=== PATIENT | male | born 1940 | race Caucasian/White ===

== ENCOUNTER → 2021-05-06 09:36 | Outpatient (CLI) | payer MEDICARE, OTHER, SELFPAY ==
[2021-05-06 12:58] LABS: COVID19 -Nasal RAPID Negative (Negative)
== END ==
PROVIDERS: Visit Provider Physician Assistant
DX: Z01.812 Encounter for preprocedural laboratory examination (principal); Z20.822 Contact with and (suspected) exposure to COVID-19
CPT/HCPCS: 87635; C9803

== ENCOUNTER 2021-05-08 12:15 | Day surgery (SDC) | payer MEDICARE, OTHER, SELFPAY ==
--- NOTE | 2021-05-07 19:38 | PM.PREOP ---
Pre-operative Note COVID-19 COVID-19 status: Negative Interval Note History & Physical reviewed/Exam performed by Physician: Yes Changes to H&P: No
--- NOTE | 2021-05-08 08:22 | P.OP_ITS ---
Operative Date/Time/Diagnoses Date of procedure: 05/08/21 Time of procedure: 13:15 Procedure & Clinicians Procedure: Preoperative diagnoses: 1. Left complex surgery with use of capsular dye. 2. Mature or advanced nuclear sclerotic and cortical cataract with poor visibility of the anterior capsule increasing surgical risks of complications. 3. 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 Postoperative diagnoses: 1. Left Complex surgery with use of capsular dye, 2. Placement of a posterior chamber intraocular lens implant. 3. Use of Maluygin ring Surgeon: Kaelyn Gibson MD Complications: none Specimen: None Implant: [id number]+22.5 Blood loss: None Anesthesia: Retrobulbar with monitored standby. Description of procedure: Dictated by: Kaelyn Gibson MD Post operative diagnoses: 1. Left cataract removed with use of capsular dye and Maluygin ring. 2. Placement of a posterior chamber intraocular lens. Procedure: Phacoemulsification with posterior chamber intraocular lens implant Surgeon: Kaelyn Gibson MD Blood loss: None Anesthesia: Retrobulbar with monitored standby Description of procedure: Patient has presented with decreased vision due to cataract which is affecting activities of daily living especially driving. The patient wants surgery to improve vision. They understand the extra risk of surgery during the COVID-19 epidemic and wished to proceed. The patient has tested negative for active COVID-19 virus within 72 hours of the procedure. Due to the possibility of floppy iris syndrome a Maluygin ring and capsular dye our plan to increase safety. This is due to the fact that he takes 2 prostate related directly that will cause increased virus problems during surgery. The patient was taken to the operating room and given IV sedation. A retrobulbar block consisting of 6 cc of 2% xylocaine without epinephrine mixed half and half with 0.5% Marcaine with 1 cc of hyaluronidase added is placed between the medial and lateral 1/3 of the inferior orbital rim. The eye is manually massaged for 30 sec, prepped using Betadine solution, and draped in the usual sterile fashion. Temporal approach was made, a 1 mm side-port incision was performed 90 degrees from the planned corneal wound. Phenylephrine 1.5% mixed with 1% xylocaine 0.2 cc was placed into the anterior chamber. An air bubble was placed and capsular blue dye was placed to improve visibility of the anterior capsule. The dye was irrigated out to reduce bubbles. Endocoat followed by Healon was then placed. A 2.6 mm clear incision with a 2.6 mm blade was placed. Is 7.0 mm Maluygin ring was inspected and open to the anterior chamber. It was then sequentially hooked on all quadrants of the iris to improve visibility. 360 degree capsulorrhexis style capsulotomy was then performed with a cystitome needle on a Healon greatly aided by the capsular dye. Hydrodelineation and hydrodissection were performed. The phacoemulsification unit is introduced, and sculpting used to groove the central lens. It is then removed in chopping mode. Epi nucleus is removed with epinuclear mode and irrigation aspiration was used to remove the peripheral cortex. A small amount of subincisional cortex was left for after the intra- ocular lens insertion. It was then removed. The posterior capsule is polished. The intraocular lens is selected, inspected, power confirmed, and placed in the posterior chamber. The Maluygin ring was then disinserted and removed from the eye. Thewound was stromally hydrated and tested for leaks, there was none and was left sutureless. Intracameral moxifloxacin 0.1 cc was placed into the anterior chamber. Kenalog 0.2 cc was placed in the superior subconjunctival space. A drop of antibiotic and was placed and the eye was patched and shielded. The patient was stable and returned to the recovery room in excellent condition. Dictated by: Kaelyn Gibson MD Copy to: [facility] Same procedure as scheduled: Yes
--- NOTE | 2021-05-08 12:10 | SUR.OPER ---
Supine on eye stretcher, head on extension cradle secured with tape. Arms tucked at sides with blanket. Pillow under knees.
[2021-05-08 12:42] VITALS: BP 193/103; PULSE 73; RESP 16; TEMP 36.3; O2SAT 99; BMI 24.0
[2021-05-08] MEDS: PROPARACAINE 0.5% OPHTH SOL 2 DROPS EYE-OP (12:45)
[2021-05-08] MEDS: CATARACT EYE COMPOUND (10 DROPS/SYRINGE) 3 DROPS EYE-OP (12:50)
[2021-05-08 12:57] VITALS: BP 182/98; PULSE 65; RESP 12
[2021-05-08] MEDS: HYALURONATE SODIUM 30 MG-10 MG/ML SYRINGES 1 BOX INTRAOCULA (13:38)
[2021-05-08] MEDS: PHENYLEPHRINE/LIDOCAINE VIAL (OR) 0.2 ML EYE-OP (13:38)
[2021-05-08] MEDS: MOXIFLOXACIN INJ 4 MG/0.8 ML VIAL 0.5 MG EYE-OP (13:38)
[2021-05-08] MEDS: LIDOCAINE 2% 4 ML, BUPIVACAINE 0.5% (PF) 4 ML, HYALURONIDASE 150 UNIT INJ (13:39)
[2021-05-08] MEDS: TRIAMCINOLONE 50 MG/5 ML VIAL INJ (13:39)
[2021-05-08] MEDS: ERYTHROMYCIN OPHTH 1 GM OINT 1 APPLIC EYE-LEFT (13:40)
[2021-05-08] MEDS: TRYPAN BLUE 0.5 ML SYRINGE INJ (13:40)
[2021-05-08] MEDS: BALANCED SALT IRRIG SOLN NO.2 500 ML, EPINEPHrine 1 MG IRR (13:40)
[2021-05-08 14:19] VITALS: BP 161/98; PULSE 62; RESP 16; TEMP 36.4; O2SAT 95
== END 2021-05-08 14:30 | disposition home or self-care (01) ==
PROVIDERS: Referring Provider Ophthalmology; Visit Provider Ophthalmology
PROC: (CPT 66982; principal; 2021-05-08 13:15)
DX: H25.812 Combined forms of age-related cataract, left eye (principal); H21.81 Floppy iris syndrome; I10 Essential (primary) hypertension
CPT/HCPCS: 66982; J0171; J2704; J3301; J3470

== ENCOUNTER → 2021-05-20 09:55 | Outpatient (CLI) | payer MEDICARE, OTHER, SELFPAY ==
[2021-05-20 13:30] LABS: COVID19 -Nasal RAPID Negative (Negative)
== END ==
PROVIDERS: Referring Provider Ophthalmology; Visit Provider Ophthalmology
DX: Z20.822 Contact with and (suspected) exposure to COVID-19 (principal)
CPT/HCPCS: 87635; C9803

== ENCOUNTER 2021-05-22 07:21 | Day surgery (SDC) | payer MEDICARE, OTHER, SELFPAY ==
--- NOTE | 2021-05-20 19:53 | PM.PREOP ---
Pre-operative Note COVID-19 COVID-19 status: Negative Criteria for continued procedure: Expected advancement of disease process, Possibility delay results in more complex future surgery or treatment, Increased loss of function and Non-surgical alternatives not available or appropriate per current SOC Interval Note History & Physical reviewed/Exam performed by Physician: Yes Changes to H&P: No
[2021-05-22] MEDS: PROPARACAINE 0.5% OPHTH SOL 2 DROPS EYE-OP (07:50)
[2021-05-22] MEDS: CATARACT EYE COMPOUND (10 DROPS/SYRINGE) 3 DROPS EYE-OP (07:55)
--- NOTE | 2021-05-22 07:58 | P.OP_ITS ---
Operative Date/Time/Diagnoses Date of procedure: 05/22/21 Time of procedure: 08:45 Procedure & Clinicians Procedure: Preoperative diagnoses: 1. Right advanced nuclear sclerotic and cortical cataract. 2. 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 3. Need for capsular dye 4. Hypertension with uses sympathomimetics 5. 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 Prostatic hypertrophy 7. Arthritis Postoperative diagnoses: 1. Complex cataract removed by phacoemulsification with placement of posterior chamber intraocular lens. 2. Use of Malyugin ring and capsular dye Procedure: Phacoemulsification with posterior chamber intraocular lens implant and use of Malyguin ring. Surgeon: Kaelyn Gibson MD Complications: None Specimen: None Implant: [id number]+22.5 Blood loss: None Anesthesia: Retrobulbar with monitored standby Description of procedure: Patient presents with a complaint of decreased vision due to cataract which is affecting activities of daily living especially for driving. The patient wants surgery to improve vision. The iris is floppy due to use of prostate like medication or unknown reason. To improve surgical safety a Malyugin ring iris pupillary device is needed. 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 A delay in surgery will increase the complexity as well as the complication likelihood. He has also stopped finasteride and terazosin for 4 days for surgery. This increases hypertension and needs to be reversed as soon as he is stable. He understands the extra risk of surgery during the COVID-19 epidemic and wishes to proceed. He has tested active virus negative within 72 hours of the procedure The patient was taken to the operating room and given IV sedation. A retrobulbar block insert consisting of 6 cc of 2% xylocaine without epinephrine mixed half and half with 0.5% Marcaine with 1 cc of hyaluronidase added is placed between the medial and lateral 1/3 of the inferior orbital rim. The eye is manually massaged for 30 sec, prepped using Betadine solution, and draped in the usual sterile fashion. Temporal approach was made, a 1 mm side-port incision was made 90? from the proposed clear corneal incision position. Phenylephrine 1.5% mixed with 1% xylocaine 0.2 cc was placed into the anterior chamber. An air bubble was placed followed by vision blue dye to improve visibility. Endocoat followed by Healon was then placed. A 2.6 mm clear incision with a 2.6 mm blade was placed. A 7.0 mm Malyugin ring was inspected, placed into the color paste mixer and opened in the anterior chamber. The iris was sequentially hooked in all 4 quadrants. It was then centered to improve iris size and visibility. A 360 degree capsulorrhexis style capsulotomy was then performed with a cystitome needle on a Healon aided by the enlarged pupil and capsular dye Hydrodelineation and hydrodissection were performed. The phacoemulsification unit is introduced, and sculpting used to groove the central lens. It is then removed in chopping mode. Epi nucleus is removed with epinuclear mode and irrigation aspiration was used to remove the peripheral cortex. The posterior capsule is polished. The intraocular lens is selected, inspected, power confirmed, and placed in the posterior chamber. [Viscoelastic was placed into the anterior chamber and the Malyugin ring disinserted from each quadrant of the iris. It was then placed back into its color paste mixer and removed in total from the eye. ] The wound was stromally hydrated and tested for leaks, there was none and it was left sutureless. Moxifloxacin 0.1 cc was placed into the anterior chamber. Kenalog 0.2 cc was placed in the superior subconjunctival space. A drop of antibiotic and was placed and the eye was patched and shielded. The patient was stable and returned to the recovery room in excellent condition. He will resume all his blood pressure medication this morning. Dictated by: Kaelyn Gibson MD Copy to: [facility] Same procedure as scheduled: Yes
[2021-05-22 08:04] VITALS: BP 168/78; PULSE 67; RESP 16; TEMP 36.3; O2SAT 97; BMI 23.7
[2021-05-22] MEDS: HYALURONATE SODIUM 30 MG-10 MG/ML SYRINGES 1 BOX INTRAOCULA (09:09)
[2021-05-22] MEDS: PHENYLEPHRINE/LIDOCAINE VIAL (OR) 0.2 ML EYE-OP (09:09)
[2021-05-22] MEDS: MOXIFLOXACIN INJ 4 MG/0.8 ML VIAL 0.5 MG EYE-OP (09:09)
[2021-05-22] MEDS: BALANCED SALT IRRIG SOLN NO.2 500 ML, EPINEPHrine 1 MG IRR (09:10)
[2021-05-22] MEDS: LIDOCAINE 2% 4 ML, BUPIVACAINE 0.5% (PF) 4 ML, HYALURONIDASE 150 UNIT INJ (09:10)
[2021-05-22] MEDS: TRIAMCINOLONE 50 MG/5 ML VIAL INJ (09:11)
[2021-05-22] MEDS: TRYPAN BLUE 0.5 ML SYRINGE INJ (09:11)
[2021-05-22] MEDS: ERYTHROMYCIN OPHTH 1 GM OINT 1 APPLIC EYE-RIGHT (09:12)
[2021-05-22 09:38] VITALS: BP 157/90; PULSE 60; RESP 16; TEMP 36.6; O2SAT 96
== END 2021-05-22 09:50 | disposition home or self-care (01) ==
LOC: OR 07:25
PROVIDERS: PCP Physician Assistant Medical; Referring Provider Ophthalmology; Visit Provider Ophthalmology
PROC: (CPT 66982; principal; 2021-05-22 08:45)
DX: H25.811 Combined forms of age-related cataract, right eye (principal); H21.81 Floppy iris syndrome; I10 Essential (primary) hypertension; N40.0 Benign prostatic hyperplasia without lower urinary tract symptoms
CPT/HCPCS: 66982; J0171; J2704; J3301; J3470